=== PATIENT | male | born 1975 | race Caucasian/White ===

== ENCOUNTER 2018-11-02 08:14 | Emergency (ER) | payer BC ==
[~2018-11-02] VITALS: Ht 154.9 cm; Wt 73.0 kg
[2018-11-02 08:16] VITALS: BP 130/78; PULSE 78; RESP 18; Ht 154.9 cm; Wt 73.0 kg
[2018-11-02] MEDS ORDERED: NAPR-985 PO (10:47)
--- NOTE | 2018-11-02 13:46 | ERD ---
ER Documentation Chief Complaint Chief Complaint right calf pain x 3 days HPI 43-year-old male presenting with pain to his right calf x3 days. Patient states his pain started after he was lifting a heavy item at work however his pain is continued and he is concerned that there is something else wrong. He denies any numbness or tingling he is unsure if there is swelling. He denies fevers. He has not taken medications for the pain. Denies shortness of breath or chest pain. No recent travel. No history of cancer. No surgical history. Denies smoking. Denies medical problems. NKDA. Surgical history denies ROS All systems reviewed and are negative except as per history of present illness. Medications Home Meds Active Scripts Naproxen* (Naprosyn*) 500 Mg Tablet, 500 MG PO BID PRN for PAIN AND/OR INFLAMMATION, #30 TAB Prov:GILMA WHYTE PA-C 11/02/18 Allergies Allergies: Coded Allergies: No Known Allergy (Unverified , 11/02/18) PMhx/Soc Medical and Surgical Hx: pt denies Medical Hx, pt denies Surgical Hx Hx Alcohol Use: No Hx Substance Use: No Hx Tobacco Use: No FmHx Family History: No diabetes, No coronary disease, No other Physical Exam Vitals Vital Signs Date Temp Pulse Resp B/P (MAP) Pulse Ox O2 O2 Flow FiO2 Time Delivery Rate 11/02/18 98.1 78 18 130/78 99 08:16 (95) Physical Exam GENERAL: The patient is well-appearing, well-nourished, in no acute distress CHEST: Clear to auscultation bilaterally. There are no rales, wheezes or rhonchi. HEART: Regular rate and rhythm. No murmurs, clicks, rubs or gallops. No S3 or S4. EXTREMITIES: Tender to palpation over the right calf. No erythema. No induration. No warmth. No swelling noted. NEUROLOGIC: Alert and oriented. Cranial nerves II through XII intact. Motor strength in all 4 extremities with 5 out of 5 strength. Sensation grossly intact. Normal speech and gait. SKIN: There is no apparent rash or petechiae. The skin is warm and dry. Procedures/MDM DIAGNOSTIC IMAGING REPORT Patient: SANTOSH GARCIA : 1975 Age: 43 Sex: M MR #: [id number] [facility] #: [id number] DOS: 11/02/18 0850 Ordering MD: CLAUDIA WHYTE PA-C Location: [facility] Room/Bed: PROCEDURE: US right lower extremity Venous. CLINICAL INDICATION: Right calf pain TECHNIQUE: Multiple sonographic images of the right lower extremity deep venous system was obtained utilizing grayscale, color-flow, compressive sonography and doppler imaging with augmentation. COMPARISON: None. FINDINGS: There is normal compressibility and flow within the right common femoral, deep femoral, superficial femoral, posterior tibial, peroneal and popliteal veins. IMPRESSION: No sonographic evidence for deep venous thrombosis of the right lower extremity. MDM: 43-year-old male presenting with pain to his right calf. Patient ultrasound was within normal limits and I have low suspicion for vascular insufficiency. I have low suspicion for infectious process. I have low suspicion for bony injury. Patient likely sustained muscular skeletal strain and spasm and will be discharged with supportive medications. Patient is recommended to rest and stretch the affected site. Patient is told symptoms change or worsen to return immediately to the ER. All questions answered at discharge Departure Diagnosis: Primary Impression: Muscle spasm of right leg Condition: Stable Patient Instructions: Muscle Strain, Extremity Referrals: [facility] YOU HAVE RECEIVED A MEDICAL SCREENING EXAM AND THE RESULTS INDICATE THAT YOU DO NOT HAVE A CONDITION THAT REQUIRES URGENT TREATMENT IN THE EMERGENCY DEPARTMENT. FURTHER EVALUATION AND TREATMENT OF YOUR CONDITION CAN WAIT UNTIL YOU ARE SEEN IN YOUR DOCTORS OFFICE WITHIN THE NEXT 1-2 DAYS. IT IS YOUR RESPONSIBILITY TO MAKE AN APPOINTMENT FOR FOLOW-UP CARE. IF YOU HAVE A PRIMARY DOCTOR --you should call your primary doctor and schedule an appointment IF YOU DO NOT HAVE A PRIMARY DOCTOR YOU CAN CALL OUR PHYSICIAN REFERRAL HOTLINE AT IF YOU CAN NOT AFFORD TO SEE A PHYSICIAN YOU CAN CHOSE FROM THE FOLLOWING [facility] [address] [facility] [address] [facility] [address] [facility] [address] [facility] [address] [place] [address]. [facility]. [address] Additional Instructions: FOLLOW UP WITH YOUR PRIMARY CARE PHYSICIAN TOMORROW.Return to this facility if you are not improving as expected. GILMA WHYTE PA-C Nov 02, 2018 13:46
== END 2018-11-02 13:40 | disposition home or self-care (01) ==
LOC: FTE 08:14
DX: M62.838 Other muscle spasm (principal)
CPT/HCPCS: 93971; Z7502